=== PATIENT | female | born 1950 | race Caucasian/White ===

== ENCOUNTER 2018-07-28 05:30 | Inpatient (IN) | payer BC, MEDICARE ==
[2018-07-25 16:14] VITALS: BMI 25.2
[2018-07-28] VITALS (27 sets, daily range): BP systolic 120–161; BP diastolic 63–90; PULSE 60–98; RESP 16–20; Ht 170.2 cm; Wt 69.4 kg
[~2018-07-28] VITALS: Ht 170.2 cm; Wt 69.4 kg
[~2018-07-28 05:30] MED LIST: ESTR1TAB17 PO; GABA300C16 PO; ZOLP10TA PO
[2018-07-28] MEDS ORDERED: CEFAZOLIN 2 GM/50 ML (PMX) 50 ML IVPB ONE (06:00)
[2018-07-28] MEDS ORDERED: LACTATED RINGER'S 1,000 ML IV SCH (06:00)
[2018-07-28] MEDS ORDERED: POLYMYXIN/BACITRACIN 1L IRRIG ONE (06:53)
[2018-07-28] MEDS ORDERED: THROMBIN (BOVINE) 5,000 UNIT VIAL TP ONE ×2 (06:53→07:02)
[2018-07-28] MEDS ORDERED: BUPIVACAINE 0.25% (MPF) 30 ML INJ ONE (06:53)
[2018-07-28] MEDS ORDERED: SURGIFOAM POWDER 1 GM KIT ONE ×2 (06:54→07:02)
[2018-07-28] MEDS ORDERED: SEVOFLURANE 15 MIN ONE (07:00)
--- NOTE | 2018-07-28 07:00 | PREAC ---
Date/Time of Note Date/Time of Note DATE: 07/28/18 TIME: 06:58 Anesthesia Eval and Record Evaluation Time Pre-Procedure Interview DATE: 07/28/18 TIME: 06:58 Age 67 Sex female NPO: 8 hrs Preoperative diagnosis Lumbar stenosis L3-L4 Planned procedure Lumbar decompression L3-L4 Past Medical History Past Medical History: None Surgery & Anesthesia Issues No known issue Meds Anticoagulation: No Beta Naheed within 24 hr: No Reason Beta Naheed not given: Pt. not on B-Naheed Reported Medications Gabapentin* (Gabapentin*) 300 Mg Capsule, 300 MG PO TID, #90 CAP 07/24/18 Zolpidem Tartrate* (Ambien*) 10 Mg Tablet, 10 MG PO QHS PRN for INSOMNIA, TAB 07/24/18 Estradiol/Norethindrone Acet (MIMVEY 1-0.5 MG TABLET) 1 Each Tablet, 1 EACH PO DAILY, TAB 07/24/18 Current Medications Lactated Ringer's 1,000 ml @ 0 mls/hr Q0M IV ; Start 07/28/18 at 06:00; Stop 07/28/18 at 18:00 Meds reviewed: Yes Allergies Coded Allergies: Sulfa (Sulfonamide Antibiotics) (Verified Allergy, Unknown, 07/24/18) latex (Verified Allergy, Unknown, 07/24/18) shellfish derived (Verified Allergy, Unknown, 07/24/18) Uncoded Allergies: bandaids (Allergy, Unknown, 07/24/18) paper (Allergy, Unknown, 07/24/18) Allergies Reviewed: Yes Labs/Studies Labs Reviewed: Reviewed by anesthesiologist test: N/A Studies: ECG Pre-procedure Exam Last vitals BP:112/67, P:78, T:98,8, Spo2:100% Airway: Adequate mouth opening, Adequate thyromental dist Mallampati: Mallampati II Teeth: Normal Lung: Normal Heart: Normal ASA Physical Status ASA physical status: 3 Emergency: None Planned Anesthetic General/MAC: ETT Planned Pain Management Parenteral pain med Pre-operative Attestations Prior to commencing anesthesia and surgery, the patient was re-evaluated, there was verification of: *The patient's identity *The results of appropriate recent lab work and preoperative vital signs *The above evaluation not changing prior to induction *Anesthetic plan, risk benefits, alternative and complications discussed with patient/family; questions answered; patient/family understands, accepts and wishes to proceed. HONORIO MAHARAJ MD July 28, 2018 07:00
[2018-07-28] MEDS ORDERED: BUPIVACAINE 0.25%/EPI (SDV) 30 ML INJ ONE (07:02)
[2018-07-28] MEDS ORDERED: BIFI4CAP PO (07:04)
[2018-07-28] MEDS ORDERED: OMEP20CA16 PO (07:04)
[2018-07-28] MEDS ORDERED: MIDAZOLAM 1 MG/ML 2 ML INJ ONE (07:06)
[2018-07-28] MEDS ORDERED: GELATIN SIZE 100 SPONGE ONE (07:45)
[2018-07-28] MEDS ORDERED: ONDANSETRON 4 MG INJ ONE ×2 (09:50→10:31)
[2018-07-28] MEDS ORDERED: DEXAMETHASONE 4 MG/ML 5 ML INJ ONE (09:50)
[2018-07-28] MEDS ORDERED: METOCLOPRAMIDE 10 MG INJ ONE (09:50)
[2018-07-28] MEDS ORDERED: NEOSTIGMINE 3 MG/3 ML SYRINGE ONE (10:14)
[2018-07-28] MEDS ORDERED: PROPOFOL 20 ML ONE (10:14)
[2018-07-28] MEDS ORDERED: ROCURONIUM 50 MG INJ ONE (10:14)
[2018-07-28] MEDS ORDERED: GLYCOPYRROLATE 0.4 MG INJ ONE (10:14)
[2018-07-28] MEDS ORDERED: ETOMIDATE 20 MG INJ ONE (10:14)
[2018-07-28] MEDS ORDERED: LIDOCAINE 2% (SDV) 5 ML INJ ONE (10:14)
--- NOTE | 2018-07-28 10:27 | PAC ---
Date/Time of Note Date/Time of Note DATE: 07/28/18 TIME: 10:26 Post-Anesthesia Notes Post-Anesthesia Note Last documented vital signs Vital Signs Date Temp Pulse Resp B/P (MAP) Pulse Ox O2 O2 Flow FiO2 Time Delivery Rate 07/28/18 99.2 81 16 161/90 96 05:42 (113) Activity: WNL Respiratory function: WNL Cardiovascular function: WNL Mental status: Baseline Pain reasonably controlled: Yes Hydration appropriate: Yes Nausea/Vomiting absent: Yes Comments BP:122/56,P:78, Spo2:100%, T:98 HONORIO MAHARAJ MD July 28, 2018 10:27
[2018-07-28] MEDS ORDERED: HYDROmorphONE 1 MG/5 ML IV SYRINGE IV PRN (10:30)
[2018-07-28] MEDS ORDERED: METOCLOPRAMIDE 10 MG INJ IV PRN (10:30)
[2018-07-28] MEDS ORDERED: ONDANSETRON 4 MG INJ IV PRN (10:30)
[2018-07-28] MEDS ORDERED: MEPERIDINE 25 MG INJ IV PRN (10:30)
[2018-07-28] MEDS ORDERED: FENTAnyl 50 MCG/ML VIAL IV PRN (10:30)
[2018-07-28] MEDS ORDERED: DIPHENHYDRAMINE 50 MG INJ IV PRN (10:30)
[2018-07-28] MEDS ORDERED: MEPERIDINE 25 MG INJ ONE (10:31)
[2018-07-28] MEDS ORDERED: HYDROmorphONE 1 MG/5 ML IV SYRINGE IV ONE (10:32)
[2018-07-28] MEDS: HYDROmorphONE 1 MG/5 ML IV SYRINGE IV PRN ×2 (10:35→10:49)
--- NOTE | 2018-07-28 10:42 | SIPON ---
Date/Time of Note Date/Time of Note DATE: 07/28/18 TIME: 10:39 Operative Report Preoperative Diagnosis Spinal Stenosis L2-L4 Postoperative Diagnosis Same Operation/Procedure Performed Central decompressive laminectomy at L2 Central decompressive laminectomy at L3 Central decompressive laminectomy at L4 Partial central decompressive laminectomy at L5 (superiorly) Medial facetectomy and foraminotomies L2-3, L3-4, and L4-5 bilaterally Cosmetic wound closure (10 cm) Lateral localizing lumbar radiographs (2) Intraoperative nerve monitoring (3 hours) Surgeon see signature line assistant scientist Margarita Millan PA-C Anesthesia: general Estimated blood loss: 250 - 300 ml's Transfusion Required none Specimen Spinous process of L2, L3, and L4 Grafts/Implants none Complications none REGINE VIDALES MD July 28, 2018 10:42
[2018-07-28] MEDS ORDERED: TRIMETHOBENZAMIDE 100 MG/ML VIAL IM PRN (11:00)
[2018-07-28] MEDS ORDERED: ACETAMINOPHEN 325 MG TAB PO PRN (11:00)
[2018-07-28] MEDS ORDERED: ZOLPIDEM 5 MG TAB PO PRN (11:00)
[2018-07-28] MEDS ORDERED: DIAZEPAM 5 MG TAB PO PRN (11:00)
[2018-07-28] MEDS ORDERED: AL HYDROX/MG HYDROX/SIMETH 30 ML CUP PO PRN (11:00)
[2018-07-28] MEDS ORDERED: NACL 0.9% 3 ML SYG IV SCH (11:00)
[2018-07-28] MEDS ORDERED: NALOXONE (0.4 MG/ML) INJ IV PRN (11:00)
[2018-07-28] MEDS ORDERED: DIAZEPAM 5 MG/ML SYG IM PRN (11:00)
[2018-07-28] MEDS ORDERED: BETHANECHOL 25 MG TAB PO PRN (11:00)
[2018-07-28] MEDS ORDERED: DIPHENHYDRAMINE 50 MG CAP PO PRN (11:00)
[2018-07-28] MEDS ORDERED: HYDROCODONE/APAP (5/325) TAB PO PRN (11:00)
[2018-07-28] MEDS: HYDROmorphONE 0.2 MG/ML PCA IV SCH ×2 (11:12→21:16)
[2018-07-28] MEDS: CEFAZOLIN 1 GM/50 ML (PMX) 50 ML IVPB SCH ×3 (12:13→23:49)
[2018-07-28] MEDS: DEXTROSE 5%-0.45% NACL 1,000 ML IV SCH ×2 (12:13→22:33)
--- NOTE | 2018-07-28 12:18 | OPR ---
DATE OF OPERATION: 07/28/2018 PREOPERATIVE DIAGNOSIS: Lumbar spinal stenosis at L2, L3 and L4. POSTOPERATIVE DIAGNOSIS: Lumbar spinal stenosis at L2, L3 and L4. OPERATIONS PERFORMED: 1. Central decompressive laminectomy at L2. 2. Central decompressive laminectomy at L3. 3. Central decompressive laminectomy at L4. 4. Partial central decompression laminectomy at L5 (superiorly). 5. Medial facetectomy and foraminotomy L2-L3, L3-L4 and L4-L5 bilaterally. 6. Cosmetic wound closure (10 cm). 7. Lateral localized lumbar radiographs (2). 8. Intraoperative nerve monitoring (3 hours). SURGEON: Andres Oconnell M.D. TOOLSMITH: Margarita Millan PA-C. ANESTHESIA: General endotracheal. ANESTHESIOLOGIST: Sj Barber M.D. ESTIMATED BLOOD LOSS: 250 mL-none replaced. DRAINS: Two medium Hemovac drains employed. COMPLICATIONS: None. PERTINENT HISTORY AND PHYSICAL: This is a 67-year-old female with severe low back and bilateral leg pain, left greater than right, which has been unrelieved by conservative management. She has undergo ne a number of diagnostic studies including an MRI of the lumbar spine, which demonstrated multilevel spinal stenosis at L2, L3, and L4. Treatment options discussed with the patient, she elected to pro ceed with surgery. OPERATIVE FINDINGS AT SURGERY: Lumbar spinal stenosis at L2 and L3 (moderate) and L4 (severe) were c onfirmed. The baseline intraoperative nerve monitoring revealed a decrease in the L3 potentials bila terally of 30%, the L4 potentials bilaterally of 40% and L5 on the left was down 40%, L5 on the right was down 30%. These all returned to normal at the completion of the surgery. OPERATIVE PROCEDURE: With the patient in supine position after satisfactory induction of general end otracheal anesthesia by Dr. Barber, the patient was turned to the prone kneeling position on the [facility] frame. All pressure points were carefully padded. Back was prepped and draped in usual sterile fashion. Athrombic pumps were applied to the legs below the knees to prevent venous stasis during a nd after procedure. An indwelling Lindsay catheter was also placed preoperatively to facilitate bladde r drainage during and after procedure. Two spinal needles placed next, what was felt to be L3 and L5 spinous processes, lateral angiogram was taken, which confirmed anatomic localization. A 10 cm inci bridget carried midline from L2 to L5 through skin and subcutaneous tissue to deep fascia after skin was infiltrated with 0.25% Marcaine without epinephrine for postoperative analgesia. Superficial retrac tors were placed and hemostasis secured with cautery. Throughout the procedure, copious amounts of a ntibacterial irrigating solution used to periodically irrigate the wound. The fascia was incised in midline with a hot knife and a bilateral subperiosteal dissection carried out at L2, L3 and L4. Deep retractors were placed and deep hemostasis secured with electrocautery. A second intraoperative rad iograph was taken with a Chasidy clamp placed in, what was felt to be the spinous process of L3 and L4 . This was confirmed with second x-ray. A central decompressive laminectomy at L4, L3 and L2 was th en carried out using a Jaida right-angle bone rongeur, Leksell rongeur, Kerrison punches and curett es. Ligamentum flavum was excised with sharp dissection. The operating microscope was moved into pl rex. A medial facetectomy and foraminotomy was then accomplished at L2-L3, L3-L4, and L4-L5 bilatera ll using small hand osteotome, mallet, Kerrison punches and curettes. The epidural hemostasis was s ecured with bipolar electrocautery on low setting. An attempt was made to do a Baxano transpedicular foraminotomy bilaterally; however, the exiting L4 nerve roots could not be identified electrically, and the Baxano procedure was abandoned. A small 1 mm bubble in the dorsum of the dural sac at L4-L5 was identified prior to closure and covered with a 1 x 1 cm patch of Duragen Plus. No CSF leak was n oted when the anesthesiologist was asked to perform a Valsalva maneuver at 40 mmHg. The wound was cl osed over 2 medium Hemovac drains, one below the fascia, one above the fascia using #1 Vicryl. The s uperior aspect of the lamina of L5 bilaterally was removed using Kerrison punches and curettes to fac ilitate adequate decompression of the exiting L5 nerve root and the dural sac at that level. The epi dural hemostasis was secured with bipolar electrocautery on low setting. The anesthesiologist was as ked to perform a Valsalva maneuver at 40 mmHg and no spinal fluid leak was noted. At wound closure, small 1 mm bubble in the dorsal aspect of the dura at L4 was identified and although there was no CSF leakage it was covered with a 1 x 1 cm patch of Duragen Plus. Two medium Hemovac drains were insert ed, one below the fascia and one above the fascia and the wound was then closed in layers using #1 St ratafix sutures in deep paralumbar musculature and deep fascia of back following copious amounts of a ntibacterial irrigating solution. 2-0 Vicryl interrupted and 2-0 Stratafix sutures were used to clos e the subcutaneous tissue, and a 4-0 Vicryl suture was used on the subcuticular closing suture on the skin. Dermabond and sterile compressive dressings were applied. The patient tolerated the procedur e well, was then turned to the supine position onto her bed and extubated by Dr. Barber. She was tra nsported to the recovery room in satisfactory condition. At the conclusion of procedure, sponge, ins trument, and needle counts were all correct. NEED FOR LATHE WINDER: During this spinal surgical procedure, my roofer assistant was used to retract and protect the spinal nerves and dural sac. My roofer assistant also employed the suction catheters to ev acuate blood from the surgical field to improve visualization of the neural structures. The assistan t was medically necessary to facilitate the completion of the surgery in a safe and expeditious martín r. [facility] regulations, as well as hospital bylaws, preclude the use of non-licensed [facility] care personnel such as operating room technicians, to perform these functions. Throughout the procedure, neural monitoring was carried out by [employer] including EMG, SSEP a nd MEP monitoring of the L3, L4, L5, and S1 nerve roots bilaterally along with spinal cord potentials . These were interpreted in real time by Dr. Emmanuel Mccabe. Dictated By: ANDRES OCONNELL MD TM/CHANCE Conf#: [id number] DID#: [id number] CC: MAXI SCHWARTZ MD; ANDRSE OCONNELL MD;*End*
[2018-07-28] MEDS: PROCHLORPERAZINE 10 MG TAB PO PRN (13:06)
--- NOTE | 2018-07-28 14:10 | CONS ---
Assessment/Plan Assessment/Plan Problems: (1) Menopausal and female climacteric states Status: Chronic Comment: Pt. will be off her HRT for a few days. Monitor for climacteric symptoms (2) Irritable bowel syndrome without diarrhea Status: Chronic Comment: Cont. probiotic agents (3) Insomnia Status: Chronic Comment: zolpidem prn (4) Gastro-esophageal reflux disease without esophagitis Status: Chronic Comment: Cont. pantoprazole daily (5) Spinal stenosis, lumbar region with neurogenic claudication Status: Resolved Comment: per primary team (6) Status post lumbar laminectomy Status: Acute Comment: Doing well POD#0. Primary team to manage pain and PT. Will follow for any medical issues and manage should they arise. Consultation Date/Type/Reason Admit Date/Time July 28, 2018 at 05:30 Date of Consultation: July 28, 2018 Type of Consult Medicine Reason for Consultation Medical Management Requesting Provider: REGINE VIDALES MD Date/Time of Note DATE: 07/28/18 TIME: 14:04 Hx of Present Illness 67 y/o C F w/ h/o GERD, insomnia, menopausal syndrome who was in [facility] until the last year when she developed lower back pains radiating down the legs, L > R. Pt. has had 5 failed epidurals. Pt. reports recently w/ muscle spasms in the middle of the night waking her. Pt. scheduled for lumbar lami today and is now POD#0 and doing well. Constitutional: no complaints, improved Eyes: no complaints ENT: no complaints Respiratory: no complaints Cardiovascular: no complaints Gastrointestinal: no complaints Genitourinary: no complaints Musculoskeletal: back pain Neurologic: no complaints Past Medical History Medical History: GERD, other (insomnia, mild IBS, menopausal syndrome) Home Meds Reported Medications Bifidobacterium Infantis (Align) 4 Mg Capsule, 4 MG PO DAILY, CAP 07/28/18 Omeprazole* (Omeprazole*) 20 Mg Capsule.dr, 20 MG PO DAILY, #30 CAP 07/28/18 Gabapentin* (Gabapentin*) 300 Mg Capsule, 300 MG PO TID, #90 CAP 07/24/18 Zolpidem Tartrate* (Ambien*) 10 Mg Tablet, 10 MG PO QHS PRN for INSOMNIA, TAB 07/24/18 Estradiol/Norethindrone Acet (MIMVEY 1-0.5 MG TABLET) 1 Each Tablet, 1 EACH PO DAILY, TAB 07/24/18 Medications Current Medications Lactated Ringer's 1,000 ml @ 0 mls/hr Q0M IV ; Start 07/28/18 at 06:00; Stop 07/28/18 at 18:00 Hydromorphone HCl (Dilaudid) 0.2 mg PACU PRN IV MILD PAIN 1-3 Last administered on 07/28/18at 11:00; Admin Dose 0.2 MG; Start 07/28/18 at 10:30; Stop 07/28/18 at 14:30 Hydromorphone HCl (Dilaudid) 0.4 mg PACU PRN IV MOD PAIN 4-6 Last administered on 07/28/18at 10:49; Admin Dose 0.4 MG; Start 07/28/18 at 10:30; Stop 07/28/18 at 14:30 Fentanyl (Sublimaze) 25 mcg PACU ORDER PRN IV MILD PAIN 1-3; Start 07/28/18 at 10:30; Stop 07/28/18 at 14:30 Ondansetron HCl (Zofran Inj) 4 mg PACU ORDER PRN IV NAUSEA/VOMITING Last administered on 07/28/18at 10:35; Admin Dose 4 MG; Start 07/28/18 at 10:30; Stop 07/28/18 at 14:30 Metoclopramide HCl (Reglan) 10 mg PACU ORDER PRN IV NAUSEA/VOMITING; Start 07/28/18 at 10:30; Stop 07/28/18 at 14:30 Meperidine HCl (Demerol) 25 mg PACU ORDER PRN IV .RIGORS Last administered on 07/28/18at 10:35; Admin Dose 25 MG; Start 07/28/18 at 10:30; Stop 07/28/18 at 14:30 Diphenhydramine HCl (Benadryl) 25 mg PACU ORDER PRN IV .PRURITUS; Start 07/28/18 at 10:30; Stop 07/28/18 at 14:30 Dextrose/Sodium Chloride 1,000 ml @ 100 mls/hr Q10H IV Last administered on 07/28/18at 12:13; Admin Dose 100 MLS/HR; Start 07/28/18 at 10:34 Acetaminophen/ Hydrocodone Bitart ([place] (5/325)) 1 tab Q4H PRN PO .PAIN 1-5; Start 07/28/18 at 11:00 Acetaminophen/ Hydrocodone Bitart ([place] (5/325)) 2 tab Q4H PRN PO .PAIN 6-10; Start 07/28/18 at 11:00 Cefazolin Sodium 50 ml @ 100 mls/hr Q6 IVPB Last administered on 07/28/18at 12:13; Admin Dose 100 MLS/HR; Start 07/28/18 at 12:00; Stop 07/29/18 at 06:29 Zolpidem Tartrate (Ambien) 5 mg HS PRN PO .INSOMNIA; Start 07/28/18 at 11:00 Prochlorperazine (Compazine) 10 mg Q4H PRN PO NAUSEA/VOMITING Last administered on 07/28/18at 13:06; Admin Dose 10 MG; Start 07/28/18 at 11:00 Trimethobenzamide HCl (Tigan) 200 mg Q4H PRN IM NAUSEA/VOMITING; Start 07/28/18 at 11:00 Ondansetron HCl (Zofran Inj) 4 mg Q6H PRN IV NAUSEA/VOMITING; Start 07/28/18 at 11:00 Al Hydrox/Mg Hydrox/Simethicone (Mag-Al Plus) 15 ml Q4H PRN PO .CONSTIPATION; Start 07/28/18 at 11:00 Docusate Sodium (Colace) 100 mg BID PO ; Start 07/29/18 at 09:00 Acetaminophen (Tylenol Tab) 650 mg Q4H PRN PO TEMP GREATER THAN 101F OR STEVEN; Start 07/28/18 at 11:00 Ascorbic Acid (Vitamin C) 1,000 mg BID PO ; Start 07/29/18 at 09:00 Ferrous Sulfate (Ferrous Sulfate (Ec)) 325 mg TID PO ; Start 07/29/18 at 09:00 Ranitidine HCl (Zantac) 150 mg BID PO ; Start 07/28/18 at 21:00 Diazepam (Valium) 5 mg Q4H PRN PO .MUSCLE SPASM; Start 07/28/18 at 11:00 Diazepam (Valium) 5 mg Q4H PRN IM .MUSCLE SPASM; Start 07/28/18 at 11:00 Phenol (Cepastat Lozenge) 1 lozenge PRN PRN MT .SORE THROAT; Start 07/28/18 at 11:00 Bethanechol Chloride (Urecholine) 25 mg PRN PRN PO .UNABLE TO VOID; Start 07/28/18 at 11:00 Diphenhydramine HCl (Benadryl) 50 mg Q6H PRN PO .PRURITUS; Start 07/28/18 at 11:00 IV Flush (NS 3 ml) 3 ml PER PROTOCOL IV ; Start 07/28/18 at 11:00 Hydromorphone HCl (Dilaudid TICKET SALES AGENT) Q4PCA IV Last administered on 07/28/18at 11:12; Admin Dose 6 MG; Start 07/28/18 at 11:00 Naloxone HCl (Narcan) 0.2 mg Q2M PRN IV RR 8 BREATHS/MIN OR LESS; Start 07/28/18 at 11:00 Zolpidem Tartrate (Ambien) 10 mg QHS PRN PO INSOMNIA; Start 07/28/18 at 14:00; Status UNV Miscellaneous Information 1 each DAILY PO ; Start 07/29/18 at 09:00; Status UNV Saccharomyces Boulardii (Florastor) 500 mg BID PO ; Start 07/28/18 at 21:00; Status UNV Pantoprazole (Protonix Tab) 40 mg DAILY@06 PO ; Start 07/29/18 at 06:00; Status UNV Allergies: Coded Allergies: Sulfa (Sulfonamide Antibiotics) (Verified Allergy, Unknown, 07/28/18) adhesive tape (Verified Allergy, Unknown, 07/28/18) latex (Verified Allergy, Unknown, 07/28/18) shellfish derived (Verified Allergy, Unknown, 07/28/18) Past Surgical History Past Surgical Hx: other (shoulder surgery) Family History Significant Family History: COPD (mother) Social History b. 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 Alcohol Use: rarely Smoking Status: Never smoker Drug Use: none Exam/Review of Systems Exam Vitals VS - Last 72 Hours, by Label Date Temp Pulse Resp B/P (MAP) Pulse Ox O2 O2 Flow FiO2 Time Delivery Rate 07/28/18 20 11:26 07/28/18 70 20 134/66 97 Nasal 2.0 11:25 (88) Cannula 07/28/18 98.2 62 16 130/75 99 Nasal 2.0 11:20 (93) Cannula 07/28/18 66 16 139/79 98 Nasal 2.0 11:15 (99) Cannula 07/28/18 72 17 135/69 99 Nasal 2.0 11:10 (91) Cannula 07/28/18 66 17 139/77 98 Nasal 2.0 11:05 (97) Cannula 07/28/18 74 20 132/76 98 Nasal 2.0 11:00 (94) Cannula 07/28/18 70 20 134/76 97 Nasal 2.0 10:55 (95) Cannula 07/28/18 76 19 140/81 99 Nasal 10:45 (100) Cannula 07/28/18 82 18 130/63 100 Nasal 10:40 (85) Cannula 07/28/18 76 19 138/81 99 Nasal 10:36 (100) Cannula 07/28/18 82 18 134/63 100 Nasal 10:31 (86) Cannula 07/28/18 98.0 10:28 07/28/18 78 20 143/81 100 Nasal 10:26 (101) Cannula 07/28/18 98.4 98 20 144/74 99 Nasal 10:21 (97) Cannula 07/28/18 99.2 81 16 161/90 96 05:42 (113) Vital Signs Date Temp Pulse Resp B/P (MAP) Pulse Ox O2 O2 Flow FiO2 Time Delivery Rate 07/28/18 20 11:26 07/28/18 70 134/66 97 Nasal 2.0 11:25 (88) Cannula 07/28/18 98.2 11:20 Constitutional: alert, oriented, well developed Psych: no complaints, nl mood/affect Eyes: nl conjunctiva, EOMI, nl lids, nl sclera, PERRL ENMT: nl external ears & nose, mucosa pink and moist Neck: supple, non-tender; No bruits, No masses, No thyromegaly Respiratory: clear to auscultation, normal air movement Cardiovascular: regular rate and rhythm, nl pulses; No edema, No murmurs/extra sounds, No rub Gastrointestinal: soft, nl liver, spleen, non-tender, bowel sounds; No mass, No rebound or guarding Musculoskeletal: nl extremities to inspection Extremities: normal pulses; No cyanosis, No clubbing, No edema Neurological: COMMODITIES CLERK II-XII intact, nl mental status, nl speech, nl strength Medications Medication Current Medications Lactated Ringer's 1,000 ml @ 0 mls/hr Q0M IV ; Start 07/28/18 at 06:00; Stop 07/28/18 at 18:00 Hydromorphone HCl (Dilaudid) 0.2 mg PACU PRN IV MILD PAIN 1-3 Last administered on 07/28/18at 11:00; Admin Dose 0.2 MG; Start 07/28/18 at 10:30; Stop 07/28/18 at 14:30 Hydromorphone HCl (Dilaudid) 0.4 mg PACU PRN IV MOD PAIN 4-6 Last administered on 07/28/18at 10:49; Admin Dose 0.4 MG; Start 07/28/18 at 10:30; Stop 07/28/18 at 14:30 Fentanyl (Sublimaze) 25 mcg PACU ORDER PRN IV MILD PAIN 1-3; Start 07/28/18 at 10:30; Stop 07/28/18 at 14:30 Ondansetron HCl (Zofran Inj) 4 mg PACU ORDER PRN IV NAUSEA/VOMITING Last administered on 07/28/18at 10:35; Admin Dose 4 MG; Start 07/28/18 at 10:30; Stop 07/28/18 at 14:30 Metoclopramide HCl (Reglan) 10 mg PACU ORDER PRN IV NAUSEA/VOMITING; Start 07/28/18 at 10:30; Stop 07/28/18 at 14:30 Meperidine HCl (Demerol) 25 mg PACU ORDER PRN IV .RIGORS Last administered on 07/28/18at 10:35; Admin Dose 25 MG; Start 07/28/18 at 10:30; Stop 07/28/18 at 14:30 Diphenhydramine HCl (Benadryl) 25 mg PACU ORDER PRN IV .PRURITUS; Start 07/28/18 at 10:30; Stop 07/28/18 at 14:30 Dextrose/Sodium Chloride 1,000 ml @ 100 mls/hr Q10H IV Last administered on 07/28/18at 12:13; Admin Dose 100 MLS/HR; Start 07/28/18 at 10:34 Acetaminophen/ Hydrocodone Bitart ([place] (5/325)) 1 tab Q4H PRN PO .PAIN 1-5; Start 07/28/18 at 11:00 Acetaminophen/ Hydrocodone Bitart ([place] (5/325)) 2 tab Q4H PRN PO .PAIN 6-10; Start 07/28/18 at 11:00 Cefazolin Sodium 50 ml @ 100 mls/hr Q6 IVPB Last administered on 07/28/18at 12:13; Admin Dose 100 MLS/HR; Start 07/28/18 at 12:00; Stop 07/29/18 at 06:29 Zolpidem Tartrate (Ambien) 5 mg HS PRN PO .INSOMNIA; Start 07/28/18 at 11:00 Prochlorperazine (Compazine) 10 mg Q4H PRN PO NAUSEA/VOMITING Last administered on 07/28/18at 13:06; Admin Dose 10 MG; Start 07/28/18 at 11:00 Trimethobenzamide HCl (Tigan) 200 mg Q4H PRN IM NAUSEA/VOMITING; Start 07/28/18 at 11:00 Ondansetron HCl (Zofran Inj) 4 mg Q6H PRN IV NAUSEA/VOMITING; Start 07/28/18 at 11:00 Al Hydrox/Mg Hydrox/Simethicone (Mag-Al Plus) 15 ml Q4H PRN PO .CONSTIPATION; Start 07/28/18 at 11:00 Docusate Sodium (Colace) 100 mg BID PO ; Start 07/29/18 at 09:00 Acetaminophen (Tylenol Tab) 650 mg Q4H PRN PO TEMP GREATER THAN 101F OR STEVEN; Start 07/28/18 at 11:00 Ascorbic Acid (Vitamin C) 1,000 mg BID PO ; Start 07/29/18 at 09:00 Ferrous Sulfate (Ferrous Sulfate (Ec)) 325 mg TID PO ; Start 07/29/18 at 09:00 Ranitidine HCl (Zantac) 150 mg BID PO ; Start 07/28/18 at 21:00 Diazepam (Valium) 5 mg Q4H PRN PO .MUSCLE SPASM; Start 07/28/18 at 11:00 Diazepam (Valium) 5 mg Q4H PRN IM .MUSCLE SPASM; Start 07/28/18 at 11:00 Phenol (Cepastat Lozenge) 1 lozenge PRN PRN MT .SORE THROAT; Start 07/28/18 at 11:00 Bethanechol Chloride (Urecholine) 25 mg PRN PRN PO .UNABLE TO VOID; Start 07/28/18 at 11:00 Diphenhydramine HCl (Benadryl) 50 mg Q6H PRN PO .PRURITUS; Start 07/28/18 at 11:00 IV Flush (NS 3 ml) 3 ml PER PROTOCOL IV ; Start 07/28/18 at 11:00 Hydromorphone HCl (Dilaudid TICKET SALES AGENT) Q4PCA IV Last administered on 07/28/18at 11:12; Admin Dose 6 MG; Start 07/28/18 at 11:00 Naloxone HCl (Narcan) 0.2 mg Q2M PRN IV RR 8 BREATHS/MIN OR LESS; Start 07/28/18 at 11:00 Zolpidem Tartrate (Ambien) 10 mg QHS PRN PO INSOMNIA; Start 07/28/18 at 14:00; Status UNV Miscellaneous Information 1 each DAILY PO ; Start 07/29/18 at 09:00; Status UNV Saccharomyces Boulardii (Florastor) 500 mg BID PO ; Start 07/28/18 at 21:00; Status UNV Pantoprazole (Protonix Tab) 40 mg DAILY@06 PO ; Start 07/29/18 at 06:00; Status UNV MAXI SCHWARTZ MD July 28, 2018 14:10
[2018-07-28] MEDS: ONDANSETRON 4 MG INJ IV PRN (16:33)
[2018-07-28] MEDS: [UNRECOGNIZED DRUG - OTHER] XX SCH (19:00)
[2018-07-28] MEDS: RANITIDINE 150 MG TAB PO SCH (21:13)
[2018-07-28] MEDS: SACCHAROMYCES BOULARDII 250 MG CAP PO SCH (21:13)
[2018-07-28] MEDS: ZOLPIDEM 5 MG TAB PO PRN (22:13)
[2018-07-28] MEDS: CEPASTAT LOZENGE MT PRN (22:13)
[2018-07-29 00:06] VITALS: BP 151/76; PULSE 97; RESP 19
[2018-07-29] MEDS: [UNRECOGNIZED DRUG - OTHER] XX SCH ×3 (03:00→19:00)
[2018-07-29] MEDS: PANTOPRAZOLE (EC) 40 MG TAB PO SCH (05:27)
[2018-07-29] MEDS: CEFAZOLIN 1 GM/50 ML (PMX) 50 ML IVPB SCH (05:27)
[2018-07-29] MEDS: DEXTROSE 5%-0.45% NACL 1,000 ML IV SCH ×2 (06:34→16:34)
--- NOTE | 2018-07-29 07:03 | PN ---
Date/Time of Note Date/Time of Note DATE: 07/29/18 TIME: 07:01 Assessment/Plan Lines/Catheters IV Catheter Type (from Nrs): Saline Lock Lindsay in Place (from Nrsg): Yes Subjective 24 Hr Interval Summary The patient is postop day #1 following a multilevel decompressive laminectomy at L2, L3, and L4. She is having discomfort from her Lindsay catheter. Is afebrile. A.m. lab work is unremarkable. Neurovascular structures are intact. She will be mobilized as tolerated by physical therapy, and discharged home when independent. Her Hemovac had 50 cc this morning, and will be left in place. We will discontinue her Lindsay catheter immediately. Exam/Review of Systems Vital Signs Vitals Vital Signs Date Temp Pulse Resp B/P (MAP) Pulse Ox O2 O2 Flow FiO2 Time Delivery Rate 07/29/18 18 05:00 07/29/18 98.3 97 151/76 99 00:06 (101) 07/28/18 Nasal 2.0 20:00 Cannula Intake and Output 07/28/18 07/28/18 07/29/18 1515:00 23:00 07:00 IntakeIntake Total 2000 ml 1050 ml 1120 ml OutputOutput Total 1300 ml 680 ml 2550 ml BalanceBalance 700 ml 370 ml -1430 ml Results Result Diagram: 07/29/18 0430 07/29/18 0430 REGINE VIDALES MD July 29, 2018 07:03
[2018-07-29 07:44] VITALS: BP 138/73; PULSE 102; RESP 18
[2018-07-29] MEDS ORDERED: BETHANECHOL 25 MG TAB PO PRN (08:00)
[2018-07-29] MEDS: RANITIDINE 150 MG TAB PO SCH ×2 (08:49→21:07)
[2018-07-29] MEDS: DOCUSATE SODIUM 100 MG CAP PO SCH ×2 (08:49→21:07)
[2018-07-29] MEDS: FERROUS SULFATE (EC) 325 MG TAB PO SCH ×3 (08:49→21:07)
[2018-07-29] MEDS: ASCORBIC ACID 500 MG TAB PO SCH ×2 (08:49→21:08)
[2018-07-29] MEDS: SACCHAROMYCES BOULARDII 250 MG CAP PO SCH ×2 (08:49→21:08)
[2018-07-29] MEDS ORDERED: [UNRECOGNIZED DRUG - OTHER] PO SCH (09:00)
[2018-07-29] MEDS ORDERED: NORETHINDRONE ACET PO SCH (09:00)
[2018-07-29] MEDS ORDERED: ESTRADIOL PO SCH (09:00)
[2018-07-29] MEDS: HYDROCODONE/APAP (5/325) TAB PO PRN ×3 (09:47→19:45)
[2018-07-29] MEDS: CEPASTAT LOZENGE MT PRN (10:48)
[2018-07-29 13:37] VITALS: BP 144/82; PULSE 80; RESP 18
[2018-07-29] MEDS: PROCHLORPERAZINE 10 MG TAB PO PRN (13:43)
--- NOTE | 2018-07-29 14:03 | CONS ---
Assessment/Plan Assessment/Plan Problems: (1) Nausea Status: Acute Comment: Will add metoclopramide to ondansetron for her therapy. Maybe this will be more effective. (2) Gastro-esophageal reflux disease without esophagitis Status: Chronic Comment: Cont. pantoprazole (3) Insomnia Status: Chronic Comment: Cont. zolpidem. Likely will sleep better tonight (4) Status post lumbar laminectomy Status: Acute Comment: Doing fair POD#1. Pain inadequately controlled but pt. ambulating w/ PT. Defer to primary team to optimize pain management. Consultation Date/Type/Reason Admit Date/Time July 28, 2018 at 05:30 Initial Consult Date 07/28/18 Type of Consult Medicine Reason for Consultation Medical management Requesting Provider: REGINE VIDALES MD Date/Time of Note DATE: 07/29/18 TIME: 14:00 24 HR Interval Summary Constitutional: No no complaints (didn't sleep last night, despite ambien) Detailed Summary Respiratory: no complaints Cardiovascular: no complaints Gastrointestinal: decreased appetite, nausea Genitourinary: no complaints Musculoskeletal: back pain Neurologic: no complaints Exam/Review of Systems Exam Vitals VS - Last 72 Hours, by Label Date Temp Pulse Resp B/P (MAP) Pulse Ox O2 O2 Flow FiO2 Time Delivery Rate 07/29/18 98.5 80 18 144/82 96 13:37 (102) 07/29/18 18 09:15 07/29/18 98.8 102 18 138/73 97 07:44 (94) 07/29/18 18 05:00 07/29/18 18 01:00 07/29/18 98.3 97 19 151/76 99 00:06 (101) 07/28/18 18 21:00 07/28/18 98.1 80 17 143/77 97 20:05 (99) 07/28/18 Nasal 2.0 20:00 Cannula 07/28/18 18 17:00 07/28/18 98.2 76 16 146/76 96 Nasal 2.0 15:00 (99) Cannula 07/28/18 98.2 77 16 145/79 96 Nasal 2.0 14:30 (101) Cannula 07/28/18 98.6 60 18 141/74 96 14:11 (96) 07/28/18 98.2 77 16 140/80 96 Nasal 2.0 14:00 (100) Cannula 07/28/18 98.2 80 16 141/74 96 Nasal 2.0 13:45 (96) Cannula 07/28/18 98.2 75 16 143/75 96 Nasal 2.0 13:30 (97) Cannula 07/28/18 98.2 72 16 139/71 96 Nasal 2.0 13:15 (93) Cannula 07/28/18 18 13:00 07/28/18 98.2 68 18 145/70 96 Nasal 2.0 13:00 (95) Cannula 07/28/18 98.2 72 18 148/73 98 Nasal 2.0 12:45 (98) Cannula 07/28/18 98.2 77 18 145/83 98 Nasal 2.0 12:30 (103) Cannula 07/28/18 98.2 66 18 146/77 97 Nasal 2.0 12:15 (100) Cannula 07/28/18 18 12:00 07/28/18 98.2 78 18 120/68 98 Nasal 2.0 12:00 (85) Cannula 07/28/18 20 11:26 07/28/18 70 20 134/66 97 Nasal 2.0 11:25 (88) Cannula 07/28/18 98.2 62 16 130/75 99 Nasal 2.0 11:20 (93) Cannula 07/28/18 66 16 139/79 98 Nasal 2.0 11:15 (99) Cannula 07/28/18 72 17 135/69 99 Nasal 2.0 11:10 (91) Cannula 07/28/18 66 17 139/77 98 Nasal 2.0 11:05 (97) Cannula 07/28/18 74 20 132/76 98 Nasal 2.0 11:00 (94) Cannula 07/28/18 70 20 134/76 97 Nasal 2.0 10:55 (95) Cannula 07/28/18 76 19 140/81 99 Nasal 10:45 (100) Cannula 07/28/18 82 18 130/63 100 Nasal 10:40 (85) Cannula 07/28/18 76 19 138/81 99 Nasal 10:36 (100) Cannula 07/28/18 82 18 134/63 100 Nasal 10:31 (86) Cannula 07/28/18 98.0 10:28 07/28/18 78 20 143/81 100 Nasal 10:26 (101) Cannula 07/28/18 98.4 98 20 144/74 99 Nasal 10:21 (97) Cannula 07/28/18 99.2 81 16 161/90 96 05:42 (113) Vital Signs Date Temp Pulse Resp B/P (MAP) Pulse Ox O2 O2 Flow FiO2 Time Delivery Rate 07/29/18 98.5 80 18 144/82 96 13:37 (102) 07/28/18 Nasal 2.0 20:00 Cannula Intake and Output 07/28/18 07/28/18 07/29/18 1515:00 23:00 07:00 IntakeIntake Total 2000 ml 1050 ml 1120 ml OutputOutput Total 1300 ml 680 ml 2550 ml BalanceBalance 700 ml 370 ml -1430 ml Constitutional: alert, oriented, well developed Psych: no complaints, nl mood/affect Respiratory: clear to auscultation, normal air movement Cardiovascular: regular rate and rhythm, nl pulses; No edema, No murmurs/extra sounds, No rub Gastrointestinal: soft, nl liver, spleen, non-tender, bowel sounds; No mass, No rebound or guarding Musculoskeletal: nl extremities to inspection Extremities: normal pulses; No cyanosis, No clubbing, No edema 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, nl mental status, nl speech, nl strength Results Result Diagram: 07/29/1842907/29/18 043 Results 24hrs Laboratory Tests Test 07/29/18 04:30 07/29/18 07:26 Hemoglobin 12.7 Hematocrit 36.5 L Sodium Level 141 Potassium Level 4.3 Chloride Level 112 H Carbon Dioxide Level 23 Anion Gap 6 Blood Urea Nitrogen 11 Creatinine 0.71 Est Glomerular Filtrat Rate mL/min > 60 Glucose Level 139 Calcium Level 9.1 Lab Scanned Report REFERENCE LAB Medications Medication Current Medications Dextrose/Sodium Chloride 1,000 ml @ 100 mls/hr Q10H IV Last administered on 07/28/18at 22:33; Admin Dose 100 MLS/HR; Start 07/28/18 at 10:34 Acetaminophen/ Hydrocodone Bitart ([place] (5/325)) 1 tab Q4H PRN PO .PAIN 1-5 Last administered on 07/29/18at 11:36; Admin Dose 1 TAB; Start 07/28/18 at 11:00 Acetaminophen/ Hydrocodone Bitart ([place] (5/325)) 2 tab Q4H PRN PO .PAIN 6-10 Last administered on 07/29/18 09:47; Admin Dose 2 TAB; Start 07/28/18 at 11:00 Zolpidem Tartrate (Ambien) 5 mg HS PRN PO .INSOMNIA; Start 07/28/18 at 11:00 Prochlorperazine (Compazine) 10 mg Q4H PRN PO NAUSEA/VOMITING Last administered on 07/29/18 13:43; Admin Dose 10 MG; Start 07/28/18 at 11:00 Trimethobenzamide HCl (Tigan) 200 mg Q4H PRN IM NAUSEA/VOMITING; Start 07/28/18 at 11:00 Ondansetron HCl (Zofran Inj) 4 mg Q6H PRN IV NAUSEA/VOMITING Last administered on 07/28/18 16:33; Admin Dose 4 MG; Start 07/28/18 at 11:00 Al Hydrox/Mg Hydrox/Simethicone (Mag-Al Plus) 15 ml Q4H PRN PO .CONSTIPATION; Start 07/28/18 at 11:00 Docusate Sodium (Colace) 100 mg BID PO Last administered on 07/29/18 08:49; Admin Dose 100 MG; Start 07/29/18 at 09:00 Acetaminophen (Tylenol Tab) 650 mg Q4H PRN PO TEMP GREATER THAN 101F OR STEVEN; Start 07/28/18 at 11:00 Ascorbic Acid (Vitamin C) 1,000 mg BID PO Last administered on 07/29/18 08:49; Admin Dose 1,000 MG; Start 07/29/18 at 09:00 Ferrous Sulfate (Ferrous Sulfate (Ec)) 325 mg TID PO Last administered on 07/29/18 13:43; Admin Dose 325 MG; Start 07/29/18 at 09:00 Ranitidine HCl (Zantac) 150 mg BID PO Last administered on 07/29/18 08:49; Admin Dose 150 MG; Start 07/28/18 at 21:00 Diazepam (Valium) 5 mg Q4H PRN PO .MUSCLE SPASM; Start 07/28/18 at 11:00 Diazepam (Valium) 5 mg Q4H PRN IM .MUSCLE SPASM; Start 07/28/18 at 11:00 Phenol (Cepastat Lozenge) 1 lozenge PRN PRN MT .SORE THROAT Last administered on 07/29/18at 10:48; Admin Dose 1 LOZENGE; Start 07/28/18 at 11:00 Bethanechol Chloride (Urecholine) 25 mg PRN PRN PO .UNABLE TO VOID; Start 07/28/18 at 11:00 Diphenhydramine HCl (Benadryl) 50 mg Q6H PRN PO .PRURITUS; Start 07/28/18 at 11 :00 IV Flush (NS 3 ml) 3 ml PER PROTOCOL IV ; Start 07/28/18 at 11:00 Hydromorphone HCl (Dilaudid FOREST AIDE) Q4PCA IV Last administered on 07/28/18at 21:16; Admin Dose 6 MG; Start 07/28/18 at 11:00 Naloxone HCl (Narcan) 0.2 mg Q2M PRN IV RR 8 BREATHS/MIN OR LESS; Start 07/28/18 at 11:00 Zolpidem Tartrate (Ambien) 10 mg QHS PRN PO INSOMNIA Last administered on 07/28/18at 22:13; Admin Dose 10 MG; Start 07/28/18 at 14:00 Miscellaneous Information 1 each DAILY PO ; Start 07/29/18 at 09:00; Status UNV Saccharomyces Boulardii (Florastor) 500 mg BID PO Last administered on 07/29/18at 08:49; Admin Dose 500 MG; Start 07/28/18 at 21:00 Pantoprazole (Protonix Tab) 40 mg DAILY@06 PO Last administered on 07/29/18at 05:27; Admin Dose 40 MG; Start 07/29/18 at 06:00 Miscellaneous Information (*Order Clarification Bulletin) SOLOMONVEY IS NON FORMULARY ITEM...PLE... Q8H XX ; Start 07/28/18 at 19:00 MAXI SCHWARTZ MD July 29, 2018 14:03
[2018-07-29] MEDS: METOCLOPRAMIDE 10 MG INJ IV PRN (16:59)
[2018-07-29 20:30] VITALS: BP 141/81; PULSE 83; RESP 18
[2018-07-29] MEDS: ZOLPIDEM 5 MG TAB PO PRN (21:41)
[2018-07-30 01:47] VITALS: BP 136/82; PULSE 76; RESP 19
[2018-07-30] MEDS: DEXTROSE 5%-0.45% NACL 1,000 ML IV SCH ×2 (02:34→12:34)
[2018-07-30] MEDS: [UNRECOGNIZED DRUG - OTHER] XX SCH ×2 (02:41→11:00)
[2018-07-30] MEDS: METOCLOPRAMIDE 10 MG INJ IV PRN (05:28)
[2018-07-30] MEDS: PANTOPRAZOLE (EC) 40 MG TAB PO SCH (05:30)
[2018-07-30] MEDS: HYDROCODONE/APAP (5/325) TAB PO PRN (05:33)
--- NOTE | 2018-07-30 07:02 | PN ---
Date/Time of Note Date/Time of Note DATE: 07/30/18 TIME: 06:59 Assessment/Plan Lines/Catheters IV Catheter Type (from Nrsg): Saline Lock Lindsay in Place (from Nrsg): No Subjective 24 Hr Interval Summary The patient is postop day #2 following a decompressive laminectomy at L2-L3-L4 in the upper part of L5. She is afebrile. She is resting comfortably in bed. She is afebrile. Her neuro-vascular structures are intact distally. She was not cleared by physical therapy yesterday afternoon, however I anticipate she will be cleared this morning. She has been given strict discharge precautions and instructions as well as follow- up arrangements. Her Hemovac drain was discontinued yesterday afternoon. Her wound was clean and dry, and was redressed. Exam/Review of Systems Vital Signs Vitals Vital Signs Date Temp Pulse Resp B/P (MAP) Pulse Ox O2 O2 Flow FiO2 Time Delivery Rate 07/30/18 98.6 76 19 136/82 97 Room Air 01:47 (100) 07/28/18 2.0 20:00 Intake and Output 07/29/18 07/29/18 07/30/18 1515:00 23:00 07:00 IntakeIntake Total 1025 ml 680 ml OutputOutput Total 1240 ml 25 ml BalanceBalance -215 ml 655 ml Results Result Diagram: 07/29/18 0430 07/29/18 0430 REGINE VIDALES MD July 30, 2018 07:02
[2018-07-30 08:30] VITALS: BP 149/94; PULSE 93; RESP 19
[2018-07-30] MEDS: ASCORBIC ACID 500 MG TAB PO SCH (08:58)
[2018-07-30] MEDS: SACCHAROMYCES BOULARDII 250 MG CAP PO SCH (08:58)
[2018-07-30] MEDS: RANITIDINE 150 MG TAB PO SCH (08:58)
[2018-07-30] MEDS: DOCUSATE SODIUM 100 MG CAP PO SCH (08:58)
[2018-07-30] MEDS: FERROUS SULFATE (EC) 325 MG TAB PO SCH ×2 (08:58→13:00)
[2018-07-30] MEDS: ONDANSETRON 4 MG INJ IV PRN (11:37)
--- NOTE | 2018-08-01 13:59 | HPN ---
Date/Time of Note Date/Time of Note DATE: 08/01/18 TIME: 13:58 Interval H&P Admission Note Pt. seen H&P reviewed: No system changes REGINE VIDALES MD August 01, 2018 13:58
== END 2018-07-30 13:55 | disposition home or self-care (01) | DRG 517 ==
LOC: REC 05:30 → MS1 11:55
PROVIDERS: ADMIT Orthopaedic Surgery; ATTEND Orthopaedic Surgery
PROC: 4A11X4G Monitoring of Peripheral Nervous Electrical Activity, Intraoperative, External Approach (ICD-10-PCS; 2018-07-28)
PROC: 01NB0ZZ Release Lumbar Nerve, Open Approach (ICD-10-PCS; principal; 2018-07-28 07:00)
DX: M48.062 Spinal stenosis, lumbar region with neurogenic claudication (principal); Z78.0 Asymptomatic menopausal state; K58.9 Irritable bowel syndrome, unspecified; G47.00 Insomnia, unspecified; K21.9 Gastro-esophageal reflux disease without esophagitis; I10 Essential (primary) hypertension; J32.9 Chronic sinusitis, unspecified; E78.5 Hyperlipidemia, unspecified
CPT/HCPCS: 72020; 80048; 85014; 85018; 86850; 86900; 86901; 86920; 87086; 88304; 88311; 97110; 97116; 97162; 97530; J0690; J1100; J1170; J2175; J2250; J2405; J2710; J2765; J3010; J7042